=== PATIENT | female | born 1990 | race Two or more races ===

== ENCOUNTER → 2016-11-18 | Outpatient (CLI) | payer MEDICAID, OTHER ==
[2016-11-18 09:41] LABS: BASO % 0.4 % (0.0-1.0); EOS # 0.1 K/mm3 (0.0-0.50); EOS % 2.2 % (0.0-3.0); LYMPH # 1.5 K/mm3 (1.5-6.5); LYMPH % 26.7 % (24.0-44.0); MEAN CORPUSCULAR HEMOGLOBIN 31.1 pg (27.0-33.0); MEAN CORPUSCULAR HGB CONC 32.6 g/dl (32.0-36.5); MEAN CORPUSCULAR VOLUME 95.5 fl (80.0-96.0); MONO # 0.4 K/mm3 (0.0-0.8); MONO % 6.2 % (0.0-5.0); NEUTROPHILS # 3.6 K/mm3 (1.8-7.7); NEUTROPHILS % 62.9 % (36.0-66.0); RED CELL DISTRIBUTION WIDTH 12.7 % (11.5-14.5); WHITE BLOOD COUNT 5.7 K/mm3 (4.0-10.0)
[2016-11-18 10:21] LABS: ALBUMIN 3.9 GM/DL (3.2-5.2); ALBUMIN/GLOBULIN RATIO 1.22 (1.00-1.93); ALKALINE PHOSPHATASE 62 U/L (45-117); ALT/SGPT 18 U/L (12-78); ANION GAP 5 MEQ/L (8-16); AST/SGOT 10 U/L (15-37); BILIRUBIN,TOTAL 0.4 MG/DL (0.2-1.0); BLOOD UREA NITROGEN 11 MG/DL (7-18); CARBON DIOXIDE LEVEL 29 MEQ/L (21-32); CHLORIDE LEVEL 109 MEQ/L (98-107); CHOLESTEROL LEVEL 167 MG/DL (<200); CREATININE FOR GFR 0.93 MG/DL (0.55-1.02); GLOMERULAR FILTRATION RATE > 60.0 (>60); GLUCOSE, FASTING 72 MG/DL (70-105); POTASSIUM SERUM 4.6 MEQ/L (3.5-5.1); SODIUM LEVEL 143 MEQ/L (136-145); TOTAL PROTEIN 7.1 GM/DL (6.4-8.2); TRIGLYCERIDES LEVEL 78 MG/DL (<150)
== END ==
LOC: M LAB 08:27
PROVIDERS: ATTEND Nurse Practitioner Family
DX: M19.90 Unspecified osteoarthritis, unspecified site (principal)

== ENCOUNTER → 2017-01-11 | Outpatient (CLI) | payer MEDICAID, OTHER ==
--- NOTE | 2017-01-12 23:53 | ECWPNPC ---
PATIENT NAME: VINCENT ADRIAN : 1990 GENDER: FEMALE VISIT DATE: 01/11/2017 DISCHARGE DATE: 01/11/17 1631 VISIT LOCKED DATE TIME: PHYSICIAN: MEREDITH PALACIO RESOURCE: MEREDITH PALACIO REASON FOR APPOINTMENT 1. BACK PAIN HISTORY OF PRESENT ILLNESS NEW PATIENT CONSULT: WHEN DID YOUR PAIN FIRST START? . BRIEFLY DESCRIBE HOW YOUR PAIN STARTED? . HOW DOES YOUR PAIN CHANGE WITH TIME? . DOES YOUR PAIN AWAKEN YOU FROM SLEEP? . HOW MANY HOURS OF SLEEP DO YOU NORMALLY GET? . ANY DIAGNOSTIC TESTING? . FACILITY WHERE TESTS WERE DONE? ____. PAIN TREATMENT TREATMENT YES CANCER HAVE YOU EVER HAD ANY TYPE OF CANCER?NO NO. 26 YEAR OLD FEMALE PATIENT WITH HISTORY OF CHRONIC LOW BACK. PATIENT DESCRIBES THE PAIN ACHING, BURNING, TENDER, THROBBING, SORE, SHOOTING, AND HAVING IT ALL THE TIME WITH A PAIN SCORE OF 9/10. PATIENT STATES THAT THE PAIN STARTED TWO YEARS AGO WITH NO TRAUMA AND HAS GOTTEN PROGRESSIVELY WORSE. PATIENT REPORTS PAIN DOWN BOTH LEGS. CURRENTLY THE PATIENT IS USING HYDROCODONE PRESCRIBED BY HER PRIMARY CARE DOCTOR. PATIENT STATES SHE HAS NOT TRIED PHYSICAL THERAPY DUE TO PAIN IN HER LOWER BACK AND HER PRIMARY ADVISED HER NOT TO START UNTIL AFTER SHE SEES THE DOCTOR IN [place]. PATIENT STATES THAT IT IS DIFFICULT FOR HER TO DO EVERYDAY THINGS SUCH WALKING, STANDING, SITTING, LAYING DOWN, AND OTHER EVERYDAY ACTIVITIES. PATIENT REPORTS THAT SHE WILL BE SURGEON IN [place], [place]. PATIENT CAN NOT USE NSAID'S NOTED BY HER PRIMARY CARE DOCTOR. PATIENT DENIES UNEXPLAINABLE WEIGHT LOSS, FEVER, CHILLS, NEW CHANGES ON HER URINARY OR BOWEL CONTROL. PAIN SCREENING: PATIENT HAS A COMPLAINT OF ACUTE OR CHRONIC PAIN :YES FALL RISK SCREENING: SCREENING :NO FALLS IN THE PAST YEAR GREEN INVENTORY: QUESTIONNAIRE ASSESSEDTBD SCORE VALUE CALCULATED TBD CURRENT MEDICATIONS TAKING HYDROCODONE-ACETAMINOPHEN 5-325 MG TABLET 1 TABLET NEEDED ORALLY EVERY 6 HRS, NOTES: TID MEDICATION LIST REVIEWED AND RECONCILED WITH THE PATIENT PAST MEDICAL HISTORY LOW BACK AND THORACIC PAIN - CHRONIC CERVICALGIA GERD RIGHT HIP PAIN DEPRESSION TEMPORMANDIBULAR DISORDER ALLERGIC RHINITIS BIPOLAR DISORDER PTSD / ANXIETY UPPER ABDOMINAL PAIN ASTHMA FIBROMYALGIA UNDIFFERENCIATED AUTO IMMUNE CONNECTIVE TISSUE DISEASE ALLERGIES PCN: HIVES AMOXACILLIN: HIVES CIPRO: HIVES LATEX: HIVES IV CONTRAST: ANAPHALCTIC NYLON SUTURES: BLISTERED SURGICAL HISTORY TUBAL LIGATION 2014 APPENDECTOMY 2007 CHOLECYSTECTOMY 2007 TONSILS WITH ADENOIDSA 2008 LEFT HAND SURGERY/BENIGN TUMOR [id number] 2012 FAMILY HISTORY FATHER: MOTHER: ALIVE, DIAGNOSED WITH HYPERTENSION SIBLINGS: ALIVE DAUGHTER(S): ALIVE SOCIAL HISTORY GENERAL: TOBACCO USE ARE YOU A:NONSMOKER ALCOHOL SCREENING POINTS2 INTERPRETATIONNEGATIVE PAIN CLINIC PFS, CLERGY, PUBLIC HEALTH REFERRALS CLERGY REFERRAL NEEDED?NO WAS THE PROVIDER NOTIFIED OF ANY PERTINENT INFO?NO PFS REFERRAL NEEDED?NO PUBLIC HEALTH REFERRAL NEEDED?NO PATIENT: ____. HOSPITALIZATION/MAJOR DIAGNOSTIC PROCEDURE BLOOD IN STOOL REVIEW OF SYSTEMS REVIEWED BY: PROVIDER: MEREDITH PALACIO MD . CONSTITUTIONAL: ANY CHANGE IN YOUR MEDICAL CONDITION? NO . CHILLS NO . FEVER NO . INFECTION: DO YOU HAVE NEW INFECTIONS? NO . DO YOU HAVE HISTORY OF MRSA? NO . MUSCULOSKELETAL: ANY NEW PATTERNS OF PAIN OR NUMBNESS? YES NECK TO MID BACK . SYTEMIC LUPUS NO . GASTROENTEROLOGY: ANY NEW CHANGE IN BOWEL CONTROL? NO . BARRETTS ESOPHAGUS NO . CIRRHOSIS NO . HEPATITIS NO . LIVER FAILURE NO . ACID REFLUX NO . UNEXPLAINED WEIGHT LOSS NO . GENITOURINARY: ANY NEW CHANGE IN BLADDER CONTROL? NO . IS THERE A CHANCE YOU COULD BE ? NO . HEMATOLOGY/LYMPH: DO YOU TAKE ANY BLOOD THINNERS? (FOR EXAMPLE- COUMADIN, PLAVIX, AGGRENOX, PLATEL, PRADAXA, OR XARELTO) NO . WHEN WAS YOUR LAST DOSE? DATE: TIME: . LOW PLATELET COUNT NO . SICKLE CELL DISEASE NO . VON WILLIEBRANDS NO . FACTOR V LEIDEN NO . THALLASEMIA NO . ANEMIA NO . EASY BRUISING NO . NEUROLOGY: HAVE YOU FALLEN IN THE PAST 6 MONTHS? NO . ANY NEW EXTREMITY NUMBNESS OR WEAKNESS? NO . HEAD INJURY NO . DEMENTIA NO . CEREBRAL PALSY NO . MULTIPLE SCLEROSIS NO . DIZZINESS NO . HEADACHE NO . STROKES NO . VERTIGO NO . CARDIOLOGY: DO YOU HAVE A PACEMAKER OR DEFIBRILLATOR? NO . ANGINA NO . HEART ATTACK NO . HEART SURGERY NO . CONGESTIVE HEART FAILURE/FLUID OVERLOAD NO . CHEST PAIN NO . HIGH BLOOD PRESSURE NO . IRREGULAR HEART BEAT NO . RESPIRATORY: HAVE YOU BEEN SICK IN THE PAST WEEK? NO . FEVER NO . FLU LIKE SYMPTOMS? NO . CPAP NO . BYPAP NO . ASTHMA NO . EMPHYSEMA NO . CHRONIC LUNG DISEASES NO . SHORTNESS OF BREATH ON EXERTION NO . DO YOU USE ANY TYPE OF TOBACCO (SMOKE, SMOKELESS, CHEW)? NO . COUGH NO . SNORING NO . INTEGUMENTARY: DO YOU HAVE ANY RASHES OR OPEN SORES? NO . ALLERGIC/IMMUNO: ARE YOU ALLERGIC TO SHELLFISH OR IV DYE? NO . ANY NEW ALLERGIES? NO . PSYCHIATRIC: DO YOU HAVE THOUGHTS OF HURTING YOURSELF OR SOMEONE ELSE? NO . ARE YOU ABUSED, NEGLECTED, OR IN AN UNSAFE ENVIRONMENT? NO . ENDOCRINOLOGY: ARE YOU DIABETIC? NO . THYROID DISORDER NO . OTHER: DO YOU NEED ANY PRESCRIPTIONS? NO . IF YES, PLEASE LIST: ____ . ANY NEW PROBLEMS WITH YOUR MEDICATIONS? NO . WHEN DID YOU LAST EAT? ____ . WHEN DID YOU LAST DRINK? ____ . WHAT DID YOU LAST DRINK? ____ . NAME OF PERSON DRIVING YOU HOME? ____ . DO YOU HAVE ANY OTHER QUESTIONS OR CONCERNS NO . VITAL SIGNS WT 200 LBS, HT 66 IN, BMI 32.28 INDEX, BP 116/72 MM HG, HR 78 /MIN, RR 78 /MIN, TEMP 98.2 F, OXYGEN SAT % 99%, NA INITIALS SC 14:58. EXAMINATION : PATIENT IS ALERT O X 3 AND COOPERATIVE. TENDERNESS IN THE LOWER BACK AND PARASPINAL MUSCLE GROUP. PATIENT IS LIMPING FROM THE RIGHT LEG. RIGHT LEG IS WEAKER THEN THE LEFT AT EXTENSION AND FLEXION. STRAIGHT LEG POSITIVE FOR PAIN AT 20 DEGREES. MRI OF THE LUMBAR SPINE DONE ON 11/23/16 SHOWS DISC HERNIATIONS AND DEGENERATIVE DISC DISEASE FROM L1-L2 THROUGH L5-S1. 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 TREATMENT INTERVERTEBRAL DISC DISORDER WITH RADICULOPATHY OF LUMBAR REGION START CARISOPRODOL TABLET, 350 MG, 1 TABLET NEEDED, ORALLY, BEFORE BEDTIME, 30 DAY(S), 30, REFILLS 0 START CYMBALTA CAPSULE DELAYED RELEASE PARTICLES, 30 MG, 1 CAPSULE, ORALLY WITH FOOD, DAILY, 30 DAY(S), 30 CAPSULE, REFILLS 1 NOTES: LUMBAR EPIDURAL WITH IV SEDATION,WHAT IS LUMBAR EPIDURAL INJECTION? MATERIAL WAS PRINTED,LUMBAR EPIDURAL INJECTION: RECOVERY AT HOME MATERIAL WAS PRINTED,LUMBAR EPIDURAL INJECTION: RECOVERY AT HOME MATERIAL WAS PRINTED,LUMBAR EPIDURAL INJECTION: YOUR PROCEDURE MATERIAL WAS PRINTED. CLINICAL NOTES: WE DISCUSSED SEVERAL ISSUES WITH MRS. ADRIAN'S PAIN MANAGEMENT CASE. AT THIS TIME I WOULD LIKE THE PATIENT TO START USING CYMBALTA FOR THE MUSCOSKELETOR PAIN. PATIENT WILL START SOMA AT NIGHT TO AID IN MUSCLE SPASMS AND TO HELP TO SLEEP AT NIGHT. PATIENT WAS REMINDED TO STOP THE MEDICATION IS SHE HAS ANY ADVERSE SIDE EFFECTS. PATIENT DENIES ABUSE OF ANY MEDICATION, DENIES USE OF ILLEGAL SUBSTANCES, AND STATES THAT SHE ONLY USING THE MEDICATION FOR PAIN MANAGEMENT. PATIENT WILL PERFORM A URINE TOXICOLOGY TODAY AND SIGN A NARCOTIC AGREEMENT. I WOULD LIKE TO SPEAK TO THE PATIENT'S PRIMARY CARE DOCTOR ' PATIENT WAS NOTIFIED THAT I NEED TO SPEAK WITH THIS DOCTOR PRIOR TO THE NEXT REFILL OF MEDICATION. I WOULD ALSO LIKE TO SPEAK TO THE PATIENT'S MENTAL HEALTH DOCTOR. PATIENT WAS TOLD TO BRING ALL HER MEDICATIONS TO EVERY VISIT IN THEIR ORIGINAL BOTTLES. PATIENT WAS ADVISED TO STOP THE MEDICATION IS SHE HAS ANY ADVERSE SIDE EFFECTS. WE DISCUSSED SEVERAL INTERVENTIONS THAT MAY AID THE PATIENT IN PAIN RELIEF SUCH A LUMBAR EPIDURAL. WE DISCUSSED THE RISKS, BENEFITS, AND ALTNERATIVES OF THE INJECTION AND THE PATIENT WOULD LIKE TO PROCEED AT THIS TIME. INSTRUCTIONS WERE GIVEN, QUESTIONS WERE ANSWERED, PATIENT REPORTS UNDERSTANDING AND AGREES WITH THE PLAN. I, PERRY MOYA, DOCUMENTED THE ABOVE INFORMATION ACTING A SCRIBE FOR DR. PALACIO. I HAVE REVIEWED THE ABOVE DOCUMENT, WRITTEN BY PERRY CHRISTY AND I VERIFY THAT IT IS ACCURATE. DEAR DR. CORTEZ:THANK YOU FOR YOUR KIND REFERRAL OF MS. ADRIAN. YOU WANT TO DISCUSS HER CASE WITH ME PLEASE CALL ME AT THE PAIN CENTER AT [phone]. SINCERELY,MEREDITH PALACIO, [facility]. PREVENTIVE MEDICINE PAIN CLINIC TEACHING: PROCEDURE TEACHING 01/11/17 2156 PRINTED INFORMATION ON LESI GIVEN TO AND EXPAINED TO PT. AND SHE VERBALIZED UNDERSTANDING. PRE-PROCEDURE INSTRUCTIONS REVIEWED WITH PT AND SHE VERBLAIZED UNDERSTANDING. COPY GIVEN TO PT. AD. PROCEDURE CODES FA211 ESTABILISHED PATIENT [facility] CHARGE G8427 DOC MEDS VERIFIED W/PT OR RE G2736 PAIN ASSESS POS TOOL F/U PLAN DOC DISPOSITION & COMMUNICATION FOLLOW UP LESI WITH IV SEDATION AFTER APPROVAL ELECTRONICALLY SIGNED BY MEREDITH PALACIO MD ON 01/12/2017 AT 12:52 PM EDT DISCLAIMER : THIS IS A VISIT SUMMARY EXTRACTED FROM THE [email or web address] CHART. IT IS NOT A COPY OF THE [email or web address] PROGRESS NOTE. MTDD
== END ==
LOC: M PAIN 15:00
PROVIDERS: ATTEND Anesthesiology
DX: G89.29 Other chronic pain (principal); M51.16 Intervertebral disc disorders with radiculopathy, lumbar region; M51.17 Intervertebral disc disorders with radiculopathy, lumbosacral region; M47.816 Spondylosis without myelopathy or radiculopathy, lumbar region; M47.817 Spondylosis without myelopathy or radiculopathy, lumbosacral region; F32.9 Major depressive disorder, single episode, unspecified; M79.7 Fibromyalgia; F43.10 Post-traumatic stress disorder, unspecified; J45.909 Unspecified asthma, uncomplicated; Z79.891 Long term (current) use of opiate analgesic; Z88.0 Allergy status to penicillin; Z88.1 Allergy status to other antibiotic agents; Z91.040 Latex allergy status; Z91.041 Radiographic dye allergy status

== ENCOUNTER → 2017-02-22 | Outpatient (CLI) | payer MEDICAID ==
[~2017-02-22] MED LIST: ISOVUE-M 300 61% 15ML VIAL (Q9967) As Ordered ONE; LIDOCAINE 1% MDV 20ML VIAL As Ordered ONE; LIDOCAINE 1% SDV INJ 30 ML VIAL As Ordered ONE; MIDAZOLAM INJ 2 MG/2 ML VIAL (J2250) As Ordered ONE; NORCOTAB PO; diazePAM 5 MG TAB As Ordered ONE; diphenhydrAMINE 25 MG CAP As Ordered ONE; fentaNYL 100 MCG/2 ML INJECTION (J3010) As Ordered ONE; methylPREDNISolone SUSP 40 MG/ML (DEPO-medrol) VIAL (J1030) As Ordered ONE; oxyCODONE 5MG TAB As Ordered ONE
--- NOTE | 2017-02-22 11:40 | REP ---
Partial lumbar spine series: Three views . History: Injection procedure for pain. 15 seconds of fluoroscopy time is reported. Findings: A sequence of three fluoroscopically obtained last image hold procedural spot radiographs of the lumbar spine document needle position and contrast injection associated with injection procedure. Signed by Micheal Milan MD 02/22/2017 11:32 A
--- NOTE | 2017-03-01 00:20 | ECWPNPC ---
PATIENT NAME: VINCENT ADRIAN : 1990 GENDER: FEMALE VISIT DATE: 02/22/2017 DISCHARGE DATE: 02/22/17 1153 VISIT LOCKED DATE TIME: PHYSICIAN: MEREDITH PALACIO RESOURCE: MEREDITH PALACIO REASON FOR APPOINTMENT 1. LESI WITH PRE SEDATE AND IV SEDATION HISTORY OF PRESENT ILLNESS HISTORY OF PRESENT ILLNESS: PAIN THE PATIENT DESCRIBES THE PAIN... FALL RISK SCREENING: SCREENING :NO FALLS IN THE PAST YEAR CURRENT MEDICATIONS NOT-TAKING HYDROCODONE-ACETAMINOPHEN 5-325 MG TABLET 1 TABLET NEEDED ORALLY EVERY 6 HRS, NOTES: 01-18-17 0900 NOT-TAKING CARISOPRODOL 350 MG TABLET 1 TABLET NEEDED ORALLY BEFORE BEDTIME, NOTES: DID NOT GET NOT-TAKING CYMBALTA 30 MG CAPSULE DELAYED RELEASE PARTICLES 1 CAPSULE ORALLY WITH FOOD DAILY, NOTES: DID NOT GET MEDICATION LIST REVIEWED AND RECONCILED WITH THE PATIENT PAST MEDICAL HISTORY LOW BACK AND THORACIC PAIN - CHRONIC CERVICALGIA GERD RIGHT HIP PAIN DEPRESSION TEMPORMANDIBULAR DISORDER ALLERGIC RHINITIS BIPOLAR DISORDER PTSD / ANXIETY UPPER ABDOMINAL PAIN ASTHMA FIBROMYALGIA UNDIFFERENCIATED AUTO IMMUNE CONNECTIVE TISSUE DISEASE ALLERGIES PCN: HIVES AMOXACILLIN: HIVES CIPRO: HIVES LATEX: HIVES IV CONTRAST: ANAPHALCTIC NYLON SUTURES: BLISTERED HYDROCODONE BITARTRATE: HIVES: ALLERGY TAPE: REDNESS, BLISTERS: ALLERGY SURGICAL HISTORY TUBAL LIGATION 2015 APPENDECTOMY 2007 CHOLECYSTECTOMY 2007 TONSILS WITH ADENOIDSA 2008 LEFT HAND SURGERY/BENIGN TUMOR 2013 SOCIAL HISTORY GENERAL: TOBACCO USE ARE YOU A:NONSMOKER ALCOHOL SCREENING DID YOU HAVE A DRINK CONTAINING ALCOHOL IN THE PAST YEAR?YES HOW OFTEN DID YOU HAVE A DRINK CONTAINING ALCOHOL IN THE PAST YEAR?TWO TO FOUR TIMES A MONTH (2 POINTS) HOW MANY DRINKS DID YOU HAVE ON A TYPICAL DAY WHEN YOU WERE DRINKING IN THE PAST YEAR?1 OR 2 (0 POINTS) HOW OFTEN DID YOU HAVE SIX OR MORE DRINKS ON ONE OCCASION IN THE PAST YEAR?NEVER (0 POINTS) POINTS2 INTERPRETATIONNEGATIVE PAIN CLINIC PFS, CLERGY, PUBLIC HEALTH REFERRALS CLERGY REFERRAL NEEDED?NO WAS THE PROVIDER NOTIFIED OF ANY PERTINENT INFO?NO PFS REFERRAL NEEDED?NO PUBLIC HEALTH REFERRAL NEEDED?NO PATIENT: ____. HOSPITALIZATION/MAJOR DIAGNOSTIC PROCEDURE BLOOD IN STOOL UTI 2013 REVIEW OF SYSTEMS REVIEWED BY: PROVIDER: . CONSTITUTIONAL: ANY CHANGE IN YOUR MEDICAL CONDITION? NO . CHILLS NO . FEVER NO . INFECTION: DO YOU HAVE NEW INFECTIONS? NO . DO YOU HAVE HISTORY OF MRSA? NO . MUSCULOSKELETAL: ANY NEW PATTERNS OF PAIN OR NUMBNESS? NO . GASTROENTEROLOGY: ANY NEW CHANGE IN BOWEL CONTROL? NO . GENITOURINARY: ANY NEW CHANGE IN BLADDER CONTROL? NO . IS THERE A CHANCE YOU COULD BE ? NO . HEMATOLOGY/LYMPH: DO YOU TAKE ANY BLOOD THINNERS? (FOR EXAMPLE- COUMADIN, PLAVIX, AGGRENOX, PLATEL, PRADAXA, OR XARELTO) NO . WHEN WAS YOUR LAST DOSE? DATE: TIME: . NEUROLOGY: HAVE YOU FALLEN IN THE PAST 6 MONTHS? NO . ANY NEW EXTREMITY NUMBNESS OR WEAKNESS? NO . CARDIOLOGY: DO YOU HAVE A PACEMAKER OR DEFIBRILLATOR? NO . RESPIRATORY: HAVE YOU BEEN SICK IN THE PAST WEEK? NO . FEVER NO . FLU LIKE SYMPTOMS? NO . COUGH NO . INTEGUMENTARY: DO YOU HAVE ANY RASHES OR OPEN SORES? NO . ALLERGIC/IMMUNO: ARE YOU ALLERGIC TO SHELLFISH OR IV DYE? YES . ANY NEW ALLERGIES? NO . PSYCHIATRIC: DO YOU HAVE THOUGHTS OF HURTING YOURSELF OR SOMEONE ELSE? NO . ARE YOU ABUSED, NEGLECTED, OR IN AN UNSAFE ENVIRONMENT? NO . ENDOCRINOLOGY: ARE YOU DIABETIC? NO . OTHER: DO YOU NEED ANY PRESCRIPTIONS? NO . IF YES, PLEASE LIST: ____ . ANY NEW PROBLEMS WITH YOUR MEDICATIONS? YES . WHEN DID YOU LAST EAT? 1800 . WHEN DID YOU LAST DRINK? 2200 . WHAT DID YOU LAST DRINK? WATER . NAME OF PERSON DRIVING YOU HOME? ALEE . DO YOU HAVE ANY OTHER QUESTIONS OR CONCERNS NO . VITAL SIGNS WT 200.0 LBS, HT 66 IN, BMI 32.28 INDEX, BP 100/70 MANUAL, HR 93 /MIN, RR 16 /MIN, TEMP 97.9 F, OXYGEN SAT % 96%, NA INITIALS TL 0852, REVIEWED BY: LS. 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 PROCEDURES PRE PROCEDURE DIAGNOSIS LUMBAR DISC DISORDER WITH RADICULOPATHY POST PROCEDURE DIAGNOSIS LUMBAR DISC DISORDER WITH RADICULOPATHY PROCEDURE LUMBAR EPIDURAL STEROID INJECTION UNDER FLUOROSCOPIC GUIDANCE WITH IV SEDATION SURGEON DR. MEREDITH PALACIO TIMBER TREATMENT PLANT OPERATOR NONE ANESTHESIA LOCAL WITH IV SEDATION PRE PROCEDURE NOTE THE PATIENT HAS A HISTORY OF CHRONIC LOW BACK PAIN. I EVALUATE THE PATIENT AND REVIEWED THE CHART. I WENT OVER THE RISKS, ALTERNATIVES, AND BENEFITS ASSOCIATED WITH THIS PROCEDURE. PATIENT WOULD LIKE TO MOVE FORWARD WITH IV SEDATION DUE TO DISCOMFORT, PAIN AND ANXIETY ASSOCIATED WITH THE PROCEDURE. THE PATIENT WOULD LIKE TO PROCEED AND GIVE CONSENT TO PERFORMED THE PROCEDURE. THE PATIENT DENIES UNEXPLAINABLE WEIGHT LOSS, FEVER, CHILLS, OR NEW CHANGES IN URINARY OR BOWEL CONTROL. DESCRIPTION OF PROCEDURE THE PATIENT WAS BROUGHT TO THE PROCEDURE ROOM AND PLACED IN THE PRONE POSITION. THE LUMBOSACRAL AREA WAS CLEANED WITH BETADINE SOLUTION AND DRAPED ASEPTICALLY. THE PROCEDURE WAS DONE UNDER STERILE CONDITIONS. I CHECKED LATERALITY AND THE LEVEL WHERE THE PROCEDURE WAS GOING TO BE PERFORMED WITH THE PATIENT AND THE SUPPORTING STAFF AT THE MOMENT OF THE TIME OUT IN THE PROCEDURE ROOM. UNDER FLUOROSCOPIC GUIDANCE, THE TARGET POINT WAS SELECTED AT THE INTERLAMINAR LEVEL OF L4-L5. LIDOCAINE WAS USED TO NUMB THE SKIN AND THE SUBCUTANEOUS TISSUE BELOW IT. EPIDURAL TUOHY NEEDLE, 17-GAUGE, WAS ADVANCED UNDER FLUOROSCOPIC GUIDANCE AND FOLLOWING PATIENT FEEDBACK UNTIL THE EPIDURAL SPACE WAS REACHED, 7 CM DEEP INTO THE SKIN BY THE LOSS OF RESISTANCE TECHNIQUE. A SOLUTION OF 3 ML OF NORMAL SALINE WITH DEPO-MEDROL 60 MG WAS INJECTED SLOWLY FOLLOWING PATIENT FEEDBACK. PATIENT RECEIVED VERSED 2 MG AND FENTANYL 100 MCG IV DIVIDED DOSES THERE WAS NO EVIDENCE OF BLOOD, PARESTHESIA OR CEREBROSPINAL FLUID DURING THE PROCEDURE. THE PATIENT WAS SENT TO THE RECOVERY ROOM. THE PATIENT WAS MOVING THE EXTREMITIES AND DOING WELL. THERE WAS NO COMPLICATION DURING THE PROCEDURE. FLUOROSCOPY TIME WAS 15 SECONDS. FACE TO FACE TIME WAS 12 MINUTES. NO DYE WAS USED DUE TO THE HX OF ALLERGIES TO IT. POST PROCEDURE NOTE THE PATIENT WILL BE SEEN IN A FOLLOW UP IN THE NEXT FEW WEEKS. INSTRUCTIONS WERE GIVEN, QUESTIONS WERE ANSWERED, AND THE PATIENT EXPRESSED UNDERSTANDING AND AGREES WITH THE PLAN. I, PERRY MOYA, DOCUMENTED THE ABOVE INFORMATION ACTING A SCRIBE FOR DR. PALACIO. I HAVE REVIEWED THE ABOVE DOCUMENT, WRITTEN BY PERRY SHAMPINE SCRIBE AND I VERIFY THAT IT IS ACCURATE DIAGNOSTIC IMAGING [facility] FLUORO GUIDE SPINE INJECTION (PAIN)[id number] PROCEDURE CODES 15298 LUMBAR/SACRAL W/ IMAGING 6045F RADXPS IN END [id number] PXD [id number] MOD SED SAME PHYS/QHP 5/>YRS DISPOSITION & COMMUNICATION FOLLOW UP 2 WEEKS ELECTRONICALLY SIGNED BY MEREDITH PALACIO MD ON 02/28/2017 AT 02:23 PM EST DISCLAIMER : THIS IS A VISIT SUMMARY EXTRACTED FROM THE [facility] CHART. IT IS NOT A COPY OF THE [facility] PROGRESS NOTE. MTDD
== END ==
LOC: M PAIN 08:45
PROVIDERS: ATTEND Anesthesiology
DX: G89.29 Other chronic pain (principal); M51.16 Intervertebral disc disorders with radiculopathy, lumbar region; F31.9 Bipolar disorder, unspecified; F43.10 Post-traumatic stress disorder, unspecified; F41.9 Anxiety disorder, unspecified; J45.909 Unspecified asthma, uncomplicated; M35.9 Systemic involvement of connective tissue, unspecified; Z88.1 Allergy status to other antibiotic agents; Z91.040 Latex allergy status; Z91.041 Radiographic dye allergy status; L23.1 Allergic contact dermatitis due to adhesives; Z88.8 Allergy status to other drugs, medicaments and biological substances; Z79.891 Long term (current) use of opiate analgesic; Z79.899 Other long term (current) drug therapy
CPT/HCPCS: 62323; 99152; J1030; J2250; J3010; Q9967

== ENCOUNTER 2017-03-03 15:33 | Emergency (ER) | payer MEDICAID ==
[~2017-03-03] VITALS: Ht 167.6 cm; Wt 90.9 kg
[2017-03-03 15:34] VITALS: BP 107/66
[2017-03-03] MEDS ORDERED: NORCO, ANEXSIA 5/325MG TABLET (HYDROcodone/ACETAMINOPHEN) PO ONE (17:15)
[2017-03-03] MEDS ORDERED: NORCOTAB PO ×2 (17:17→17:29)
--- NOTE | 2017-03-03 17:27 | ED PDOC ---
Post-Departure Follow-Up PT PRESENTS TODAY STATING SHE WAS SEEN BY DR. PALACIO AND HAD TRIGGER POINT INJECTIONS FOR HER CHRONIC BACK PAIN DUE TO "15 HERNIATED DISCS". STATES DOES NOT HAVE A PRIMARY CARE PROVIDER CURRENTLY AND THEREFORE HE WOULD NOT WRITE HER FOR OPIATES. PT ALSO ADMITS TO TESTING POSITIVE FOR MARIJUANA THAT SHE TAKES TO HELP HER CHRONIC PAIN. ADVISED THAT TYPICALLY WRITING SCRIPTS FOR PAIN MEDICATIONS FROM THE ER CAN GET PT'S DISCHARGED FROM THE PAIN MANAGEMENT CLINIC AND THEY WILL NOT SEE THESE PATIENTS ANYMORE. EXPLAINED THIS THE PT AND SHE STATED THAT SHE WAS SENT HERE BY THAT OFFICE AND THAT DR. PALACIO KNOWS SHE IS HERE TO GET PAIN MEDICATIONS. ADVISED THIS PLUG ASSEMBLER WOULD PUT THIS INFORMATION INTO THE CHART IN CASE SHE IS DISCHARGED FROM THEIR CLINIC FOR BREAKING ANY RULES AND PT VOICED UNDERSTANDING. MIYA GARIBAY PA-C Mar 03, 2017 17:27
== END 2017-03-03 17:39 | disposition home or self-care (01) ==
LOC: M ED 15:33
DX: M54.9 Dorsalgia, unspecified (principal); G89.29 Other chronic pain; M32.9 Systemic lupus erythematosus, unspecified; M79.7 Fibromyalgia; F43.10 Post-traumatic stress disorder, unspecified; Z91.041 Radiographic dye allergy status; Z88.8 Allergy status to other drugs, medicaments and biological substances; Z88.5 Allergy status to narcotic agent; Z88.1 Allergy status to other antibiotic agents; Z88.0 Allergy status to penicillin; Z91.048 Other nonmedicinal substance allergy status

== ENCOUNTER → 2017-03-03 | Outpatient (CLI) | payer MEDICAID ==
[~2017-03-03] MED LIST changes: -ISOVUE-M 300 61% 15ML VIAL (Q9967) As Ordered ONE; -LIDOCAINE 1% MDV 20ML VIAL As Ordered ONE; -LIDOCAINE 1% SDV INJ 30 ML VIAL As Ordered ONE; -MIDAZOLAM INJ 2 MG/2 ML VIAL (J2250) As Ordered ONE; -diazePAM 5 MG TAB As Ordered ONE; -diphenhydrAMINE 25 MG CAP As Ordered ONE; -fentaNYL 100 MCG/2 ML INJECTION (J3010) As Ordered ONE; -methylPREDNISolone SUSP 40 MG/ML (DEPO-medrol) VIAL (J1030) As Ordered ONE; -oxyCODONE 5MG TAB As Ordered ONE
--- NOTE | 2017-03-20 23:50 | ECWPNPC ---
PATIENT NAME: VINCENT ADRIAN : 1990 GENDER: FEMALE VISIT DATE: 03/03/2017 DISCHARGE DATE: 03/03/17 1547 VISIT LOCKED DATE TIME: PHYSICIAN: MEREDITH PALACIO RESOURCE: MEREDITH PALACIO REASON FOR APPOINTMENT 1. LOW BACK PAIN HISTORY OF PRESENT ILLNESS HISTORY OF PRESENT ILLNESS: PAIN THE PATIENT DESCRIBES THE PAIN... 26 YEAR OLD FEMALE PATIENT WITH HISTORY OF CHRONIC LOW BACK. PATIENT DESCRIBES THE PAIN ACHING, BURNING, TENDER, THROBBING, SORE, SHOOTING, AND HAVING IT ALL THE TIME WITH A PAIN SCORE OF 9/10. PATIENT RECEIVED A LUMBAR EPIDURAL ON 02/22/17 AND STATES THAT SHE ONLY HAD RELIEF FOR SEVERAL DAYS FROM THE INJECTION. PATIENT REPORTS PAIN DOWN BOTH LEGS. CURRENTLY THE PATIENT IS USING HYDROCODONE PRESCRIBED BY HER PRIMARY CARE DOCTOR. PATIENT STATES SHE HAS NOT TRIED PHYSICAL THERAPY DUE TO PAIN IN HER LOWER BACK AND HER PRIMARY ADVISED HER NOT TO START UNTIL AFTER SHE SEES THE DOCTOR IN [place]. PATIENT STATES THAT IT IS DIFFICULT FOR HER TO DO EVERYDAY THINGS SUCH WALKING, STANDING, SITTING, LAYING DOWN, AND OTHER EVERYDAY ACTIVITIES. PATIENT CAN NOT USE NSAID'S NOTED BY HER PRIMARY CARE DOCTOR. PATIENT DENIES UNEXPLAINABLE WEIGHT LOSS, FEVER, CHILLS, NEW CHANGES ON HER URINARY OR BOWEL CONTROL. FALL RISK SCREENING: SCREENING :NO FALLS IN THE PAST YEAR CURRENT MEDICATIONS TAKING CARISOPRODOL 350 MG TABLET 1 TABLET NEEDED ORALLY BEFORE BEDTIME NOT-TAKING HYDROCODONE-ACETAMINOPHEN 5-325 MG TABLET 1 TABLET NEEDED FOR PAIN ORALLY EVERY 6 HRS MDD2, NOTES: OUT OF MED DISCONTINUED CYMBALTA 30 MG CAPSULE DELAYED RELEASE PARTICLES 1 CAPSULE ORALLY WITH FOOD DAILY, NOTES: CAN'T TAKE IT MEDICATION LIST REVIEWED AND RECONCILED WITH THE PATIENT PAST MEDICAL HISTORY LOW BACK AND THORACIC PAIN - CHRONIC CERVICALGIA GERD RIGHT HIP PAIN DEPRESSION TEMPORMANDIBULAR DISORDER ALLERGIC RHINITIS BIPOLAR DISORDER PTSD / ANXIETY UPPER ABDOMINAL PAIN ASTHMA FIBROMYALGIA UNDIFFERENCIATED AUTO IMMUNE CONNECTIVE TISSUE DISEASE ALLERGIES PCN: HIVES AMOXACILLIN: HIVES CIPRO: HIVES LATEX: HIVES IV CONTRAST: ANAPHALCTIC NYLON SUTURES: BLISTERED HYDROCODONE BITARTRATE: HIVES: ALLERGY TAPE: REDNESS, BLISTERS: ALLERGY SOCIAL HISTORY GENERAL: TOBACCO USE ARE YOU A:NONSMOKER ALCOHOL SCREENING DID YOU HAVE A DRINK CONTAINING ALCOHOL IN THE PAST YEAR?YES HOW OFTEN DID YOU HAVE A DRINK CONTAINING ALCOHOL IN THE PAST YEAR?TWO TO FOUR TIMES A MONTH (2 POINTS) HOW MANY DRINKS DID YOU HAVE ON A TYPICAL DAY WHEN YOU WERE DRINKING IN THE PAST YEAR?1 OR 2 (0 POINTS) HOW OFTEN DID YOU HAVE SIX OR MORE DRINKS ON ONE OCCASION IN THE PAST YEAR?NEVER (0 POINTS) POINTS2 INTERPRETATIONNEGATIVE PAIN CLINIC PFS, CLERGY, PUBLIC HEALTH REFERRALS PFS REFERRAL NEEDED?NO CLERGY REFERRAL NEEDED?NO PUBLIC HEALTH REFERRAL NEEDED?NO WAS THE PROVIDER NOTIFIED OF ANY PERTINENT INFO?NO HAS THE PATIENT BEEN EDUCATED REGARDING HIS/HER PLAN OF CARE?YES REVIEWED WITH PATIENT ABOUT HOW SHE COULD USE HEAT OR COLD AT THE SITE. HAS THE PATIENT BEEN EDUCATED REGARDING PAIN, THE RISK FOR PAIN, THE IMPORTANCE OF EFFECTIVE PAIN MANAGEMENT, AND THE PAIN ASSESSMENT PROCESS?YES PATIENT: ____. REVIEW OF SYSTEMS REVIEWED BY: PROVIDER: MEREDITH PALACIO MD . CONSTITUTIONAL: ANY CHANGE IN YOUR MEDICAL CONDITION? NO . CHILLS NO . FEVER NO . INFECTION: DO YOU HAVE NEW INFECTIONS? NO . DO YOU HAVE HISTORY OF MRSA? NO . MUSCULOSKELETAL: ANY NEW PATTERNS OF PAIN OR NUMBNESS? YES, SINCE INJECTION, TENDER IN AREA, THINKS IS SWOLLEN. PAIN GOING DOWN RIGHT LEG AND NUMBNESS IN FOOT AND TOES.WORSE SINCE INJECTION. HURTS MORE WHEN WALKS. CAN'T SIT RIGHT, USING A PILLOW. . GASTROENTEROLOGY: ANY NEW CHANGE IN BOWEL CONTROL? NO . GENITOURINARY: ANY NEW CHANGE IN BLADDER CONTROL? NO . IS THERE A CHANCE YOU COULD BE ? NO . HEMATOLOGY/LYMPH: DO YOU TAKE ANY BLOOD THINNERS? (FOR EXAMPLE- COUMADIN, PLAVIX, AGGRENOX, PLATEL, PRADAXA, OR XARELTO) NO . WHEN WAS YOUR LAST DOSE? DATE: TIME: . NEUROLOGY: HAVE YOU FALLEN IN THE PAST 6 MONTHS? YES . ANY NEW EXTREMITY NUMBNESS OR WEAKNESS? NO . CARDIOLOGY: DO YOU HAVE A PACEMAKER OR DEFIBRILLATOR? NO . RESPIRATORY: HAVE YOU BEEN SICK IN THE PAST WEEK? NO . FEVER NO . FLU LIKE SYMPTOMS? NO . COUGH NO . INTEGUMENTARY: DO YOU HAVE ANY RASHES OR OPEN SORES? NO . ALLERGIC/IMMUNO: ARE YOU ALLERGIC TO SHELLFISH OR IV DYE? YES, IV CONTRAST . ANY NEW ALLERGIES? NO . PSYCHIATRIC: DO YOU HAVE THOUGHTS OF HURTING YOURSELF OR SOMEONE ELSE? NO . ARE YOU ABUSED, NEGLECTED, OR IN AN UNSAFE ENVIRONMENT? NO . ENDOCRINOLOGY: ARE YOU DIABETIC? NO . OTHER: DO YOU NEED ANY PRESCRIPTIONS? NO . IF YES, PLEASE LIST: ____ . ANY NEW PROBLEMS WITH YOUR MEDICATIONS? NO . WHEN DID YOU LAST EAT? ____ . WHEN DID YOU LAST DRINK? ____ . WHAT DID YOU LAST DRINK? ____ . NAME OF PERSON DRIVING YOU HOME? ____ . DO YOU HAVE ANY OTHER QUESTIONS OR CONCERNS YES, NECK IS HURTING MORE" CAN'T SLEEP WHOLE BACK IS HURTING AND DRIVING ME NUTS". 1521 DR[address] PALACIO WANTED PT EVALUATED IN ED FOR SEVERE PAIN AND PT WANTED TO SEE A SOCIAL WORKIER THERE. REPORT PROVIDED TO Maurilio FELIZ RN IN THE ED AND PT. TRANSPORTED TO ED VIA W/C. AD . VITAL SIGNS WT 200 LBS, HT 66 IN, BMI 32.28 INDEX, BP 131/80 MM HG, HR 90 /MIN, RR 16 /MIN, TEMP 97.3 F, OXYGEN SAT % 99%, NA INITIALS SC 14:13, REVIEWED BY: MAURILIO. EXAMINATION : PATIENT IS ALERT O X 3 AND COOPERATIVE. TENDERNESS IN THE LOWER BACK AND PARASPINAL MUSCLE GROUP. PATIENT IS LIMPING FROM THE RIGHT LEG. RIGHT LEG IS WEAKER THEN THE LEFT AT EXTENSION AND FLEXION. STRAIGHT LEG POSITIVE FOR PAIN AT 20 DEGREES. MRI OF THE LUMBAR SPINE DONE ON 11/23/16 SHOWS DISC HERNIATIONS AND DEGENERATIVE DISC DISEASE FROM L1-L2 THROUGH L5-S1. 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 ADRIAN'S PAIN MANAGEMENT CASE. AT THIS TIME I WOULD LIKE THE PATIENT TO START LYRICA DUE TO THE NEUROPATHIC PAIN SHE IS HAVING DOWN THE LEGS. PATIENT WILL ALSO START AMITRIPTYLINE FOR THE SOMATIC AND NEUROPATHIC PAIN. I WOULD LIKE TO SPEAK TO THE PATIENT'S PRIMARY CARE DOCTOR ABOUT THE OPTION OF NSAID'S FOR PAIN MANAGEMENT. PATIENT WAS ADVISED TO GO TO THE ED DUE TO THE EXTREME PAIN SHE WAS HAVING IN HER LOWER BACK AND LEGS. MRS. ADRIAN AGREED WITH THIS PLAN AND WILL FOLLOW UP IN ONE MONTH. INSTRUCTIONS WERE GIVEN, QUESTIONS WERE ANSWERED, PATIENT REPORTS UNDERSTANDING AND AGREES WITH THE PLAN. I, PERRY MOYA, DOCUMENTED THE ABOVE INFORMATION ACTING A SCRIBE FOR DR. PALACIO. I HAVE REVIEWED THE ABOVE DOCUMENT, WRITTEN BY PERRY CHRISTY AND I VERIFY THAT IT IS ACCURATE. OTHERS START AMITRIPTYLINE HCL TABLET, 25 MG, 1 TABLET, ORALLY FOR PAIN, BEFORE BEDTIME, 30 DAY(S), 30, REFILLS 1 START LYRICA CAPSULE, 50 MG, 1 CAPSULE, ORALLY FOR PAIN, TWICE A DAY, 30 DAY(S), 60 CAPSULE, REFILLS 1 PROCEDURE CODES FA211 ESTABILISHED PATIENT [facility] FACILITY CHARGE G8427 DOC MEDS VERIFIED W/PT OR RE G8730 PAIN ASSESS POS TOOL F/U PLAN DOC DISPOSITION & COMMUNICATION FOLLOW UP 3 WEEKS ELECTRONICALLY SIGNED BY MEREDITH PALACIO MD ON 03/20/2017 AT 08:02 PM EST DISCLAIMER : THIS IS A VISIT SUMMARY EXTRACTED FROM THE [employer] CHART. IT IS NOT A COPY OF THE [employer] PROGRESS NOTE. JANETH
== END ==
LOC: M PAIN 14:15
PROVIDERS: ATTEND Anesthesiology
DX: G89.29 Other chronic pain (principal); M51.16 Intervertebral disc disorders with radiculopathy, lumbar region; M51.17 Intervertebral disc disorders with radiculopathy, lumbosacral region; M47.816 Spondylosis without myelopathy or radiculopathy, lumbar region; M47.817 Spondylosis without myelopathy or radiculopathy, lumbosacral region; K21.9 Gastro-esophageal reflux disease without esophagitis; M25.551 Pain in right hip; J45.909 Unspecified asthma, uncomplicated; F31.9 Bipolar disorder, unspecified; F43.10 Post-traumatic stress disorder, unspecified; M79.7 Fibromyalgia; M35.9 Systemic involvement of connective tissue, unspecified; Z79.899 Other long term (current) drug therapy; Z88.0 Allergy status to penicillin; Z91.040 Latex allergy status; Z88.1 Allergy status to other antibiotic agents; Z91.048 Other nonmedicinal substance allergy status; Z88.8 Allergy status to other drugs, medicaments and biological substances; Z91.041 Radiographic dye allergy status

== ENCOUNTER → 2017-04-22 | Outpatient (CLI) | payer MEDICAID | LOC: M PAIN 15:00 | DX: G89.29 Other chronic pain (principal); M54.2 Cervicalgia; M51.16 Intervertebral disc disorders with radiculopathy, lumbar region; M51.17 Intervertebral disc disorders with radiculopathy, lumbosacral region; M26.69 Other specified disorders of temporomandibular joint; J45.909 Unspecified asthma, uncomplicated; F31.9 Bipolar disorder, unspecified; F43.10 Post-traumatic stress disorder, unspecified; F41.9 Anxiety disorder, unspecified; M35.9 Systemic involvement of connective tissue, unspecified; Z79.899 Other long term (current) drug therapy; Z88.1 Allergy status to other antibiotic agents; Z88.8 Allergy status to other drugs, medicaments and biological substances; Z91.048 Other nonmedicinal substance allergy status; Z91.041 Radiographic dye allergy status; Z91.040 Latex allergy status | CPT/HCPCS: G0463 ==